=== PATIENT | female | born 1960 | race African-American/Black ===

== ENCOUNTER 2020-08-26 16:13 | Emergency (ER) | payer MEDICAID, OTHER ==
[~2020-08-26] VITALS: Ht 162.6 cm; Wt 113.6 kg
[~2020-08-26 16:13] MED LIST: FERR325C PO; HYDR25TA PO; NAPR-1025 PO
[2020-08-26] MEDS ORDERED: FERR-89 PO (16:26)
[2020-08-26 16:46] VITALS: BP 150/96
[2020-08-26] MEDS ORDERED: LIDOCAINE/PF 1% 5 ML VIAL ONE (16:50)
[2020-08-26] MEDS ORDERED: LIDOCAINE 1% 10 ML VIAL ID ONE (17:00)
[2020-08-26] MEDS ORDERED: DOXYCYCLINE HYCLATE 100 MG TABLET PO ONE (17:15)
[2020-08-26] MEDS ORDERED: ACETAMINOPHEN/CODEINE 300-30 MG TABLET PO ONE (17:15)
== END 2020-08-26 17:22 | disposition home or self-care (01) ==
LOC: EMS 16:21
DX: L02.811 Cutaneous abscess of head [any part, except face] (principal); I10 Essential (primary) hypertension; F32.9 Major depressive disorder, single episode, unspecified; F17.210 Nicotine dependence, cigarettes, uncomplicated
CPT/HCPCS: 10061; 99284; J2001; J3490